=== PATIENT | male | born 1990 | race Caucasian/White ===

== ENCOUNTER 2019-12-26 02:07 | Inpatient (IN) | payer OTHER ==
[2019-12-26 02:27] VITALS: BMI 23.7
--- NOTE | 2019-12-26 03:00 | HP ---
COWS - Scale Resting Pulse: 1= [place] 81-100 Sweatin=Flushed/Facial Moisture Restless Observation: 1= Difficult to Sit Still Pupil Size: 0= Normal to Room Light Bone or Joint Aches: 4=Acute Joint/Muscle Pain Runny Nose/ Eye Tearin= Runny Nose/Eyes GI Upset > 30mins: 2= Nausea/Diarrhea (nausea, no diarrhea) Tremor Observation: 2= Slight Tremor Visible Yawning Observation: 1= 1-2x During Session Anxiety or Irritability: 2=Irritable/Anxious Goose Flesh Skin: 3=Piloerection COWS Score: 20 CIWA Score - Admission Criteria [facility]ASAS Guidelines: Admission for Medically Managed Detox: Requires at least one of the followin. CIWA greater than 12 2. Seizures within the past 24 hours 3. Delirium tremens within the past 24 hours 4. Hallucinations within the past 24 hours 5. Acute intervention needed for co occurring medical disorder 6. Acute intervention needed for co occurring psychiatric disorder 7. Severe withdrawal that cannot be handled at a lower level of care (continued vomiting, continued diarrhea, abnormal vital signs) requiring intravenous medication and/or fluids 8. Admitting History and Physical - Smoking History Smoking history: Current every day smoker Have you smoked in the past 12 months: Yes Aproximately how many cigarettes per day: 20 - Alcohol/Substance Use Hx Alcohol Use: No Admission ROS [facility] Chief Complaint: Heroin withdrawal symptoms Allergies/Adverse Reactions: Allergies Allergy/AdvReac Type Severity Reaction Status Date / Time No Known Allergies Allergy Verified 08/17/14 20:57 History of Present Illness: 29 years old male with six years of heroin dependence is seeking admission to detox. His last admission was for the period 08/17/2014-08/21/2014 and 01/12/2015-01/13/2015 and patient had left against medical advice respectively for both admissions. Patient promised to complete this admission and he signed the treatment contract. He reports use of 5 bags of heroin daily. He reports history of asthma and psych. history insomnia, depression and anxiety. He denies suicidal ideation at this time. He is unemployed, lives with his mother and denies any legal issues. He reports history of blackouts and overdoses. Patient reports history of excoriation with bruises and scabs on his left arm and frontal part of his body. Exam Limitations: Clinical Condition (withdrawals) - Ebola screening Have you traveled outside of the country in the last 21 days: No Have you had contact with anyone from an Ebola affected area: No Have you been sick,other than usual withdrawal symptoms: No Do you have a fever: No - Review of Systems Constitutional: Chills, Loss of Appetite, Malaise, Night Sweats, Changes in sleep EENT: reports: No Symptoms Reported Respiratory: reports: No Symptoms reported Cardiac: reports: No Symptoms Reported GI: reports: Nausea, Poor Appetite, Poor Fluid Intake, Abdominal cramping : reports: No Symptoms Reported Musculoskeletal: reports: Back Pain Integumentary: reports: Dryness, Flushing Neuro: reports: Headache, Tremors Endocrine: reports: No Symptoms Reported Hematology: reports: No Symptoms Reported Psychiatric: reports: Mood/Affect Appropiate, Orientated x3, Anxious Other Systems: Reviewed and Negative Patient History - Patient Medical History Hx Anemia: No Hx Asthma: Yes (Not on medication) Hx Chronic Obstructive Pulmonary Disease (COPD): No Hx Cancer: No Hx Cardiac Disorders: No Hx Congestive Heart Failure: No Hx Hypertension: No Hx Hypercholesterolemia: No Hx Pacemaker: No HX Cerebrovascular Accident: No Hx Seizures: No Hx Dementia: No Hx Diabetes: No Hx Gastrointestinal Disorders: No Hx Liver Disease: No Hx Genitourinary Disorders: No Hx Sexually Transmitted Disorders: No Hx Renal Disease (ESRD): No Hx Thyroid Disease: No Hx Human Immunodeficiency Virus (HIV): No (Negative 2014) Hx Hepatitis C: No Hx Depression: Yes (+ Anxiety = Insomnia - Not on medication) Hx Suicide Attempt: No (Denies suicidal ideation at this time.) Hx Bipolar Disorder: No Hx Schizophrenia: No - Patient Surgical History Past Surgical History: No Hx Neurologic Surgery: No Hx Cataract Extraction: No Hx Cardiac Surgery: No Hx Lung Surgery: No Hx Abdominal Surgery: No Hx Appendectomy: No Hx Cholecystectomy: No Hx Genitourinary Surgery: No Hx Orthopedic Surgery: No Anesthesia Reaction: No - PPD History Previous Implant?: Yes Documented Results: Negative w/o proof Implanted On Prior R Admission?: Yes Date: 08/19/14 Results: not read PPD to be Administered?: Yes - Reproductive History Patient is a Female of Child Bearing Age (11 -55 yrs old): No (Male) - Smoking Cessation Smoking history: Current every day smoker Have you smoked in the past 12 months: Yes Aproximately how many cigarettes per day: 10 Hx Chewing Tobacco Use: Yes Initiated information on smoking cessation: Yes 'Breaking Loose' booklet given: 12/26/19 - Substance & Tx. History Hx Alcohol Use: No Hx Substance Use: Yes Substance Use Type: Heroin Hx Substance Use Treatment: Yes ([facility]) - Substances abused Heroin Substance route: Injection Frequency: Daily Amount used: 5 bags Age of first use: 23 Date of last use: 12/25/19 Admission Physical Exam [facility] - Vital Signs Vital Signs: Vital Signs - 24 hr 12/26/19 02:26 Temperature 98.7 F Pulse Rate 99 H Respiratory 18 Rate Blood Pressure 126/79 - Physical General Appearance: Yes: Moderate Distress, Tremorous, Irritable, Anxious HEENTM: Yes: Within Normal Limits Respiratory: Yes: Lungs Clear, Normal Breath Sounds, No Respiratory Distress Neck: Yes: Within Normal Limits Breast: Yes: Breast Exam Deferred Cardiology: Yes: Tachycardia Abdominal: Yes: Normal Bowel Sounds, Soft Genitourinary: Yes: Within Normal Limits Back: Yes: Normal Inspection Musculoskeletal: Yes: Back pain Extremities: Yes: Tremors Neurological: Yes: Within Normal Limits, Alert, Normal Mood/Affect Integumentary: Yes: Warm, Track [place] (right arm) Lymphatic: Yes: Within Normal Limits - Diagnostic (1) Opioid dependence with withdrawal Current Visit: Yes Status: Acute (2) Anxiety and depression Current Visit: Yes Status: Chronic (3) Asthma Current Visit: Yes Status: Chronic Qualifiers: Asthma severity: mild Asthma persistence: intermittent (4) Insomnia Current Visit: Yes Status: Chronic Qualifiers: Insomnia type: drug-induced Qualified Code(s): F19.982 - Other psychoactive substance use, unspecified with psychoactive substance-induced sleep disorder (5) Nicotine dependence Current Visit: Yes Status: Chronic Qualifiers: Nicotine product type: cigarettes Substance use status: uncomplicated Qualified Code(s): F17.210 - Nicotine dependence, cigarettes, uncomplicated Cleared for Admission [facility] - Detox or Rehab [facility] Level of Care: Medically Managed Detox Regimen/Protocol: Methadone Claeared for Rehab Admission: No Breathalyzer - Breathalyzer Breathalyzer: 0 Urine Drug Screen - Test Device Lot number: [id number] Expiration date: 07/26/21 - Control Is test valid?: Yes - Results Drug screen NEGATIVE: No Urine drug screen results: AMP-Amphetamines, FEN-Fentanyl, MOP-Opiates Inpatient Rehab Admission - Rehab Decision to Admit Inpatient rehab admission?: No
[2019-12-26] MEDS ORDERED: IBUPROFEN 400 MG TABLET (FP) PO PRN (03:22)
[2019-12-26] MEDS ORDERED: ACETAMINOPHEN 325 MG TABLET (FP) PO PRN ×2 (03:22)
[2019-12-26] MEDS ORDERED: MAGNESIUM HYDROX 2400MG/30ML ORAL SUSPENSION 30 ML CUP PO PRN (03:22)
[2019-12-26] MEDS ORDERED: METHADONE HCL 10 MG TABLET (FOR DETOX USE ONLY) PO ONE (03:22)
[2019-12-26] MEDS ORDERED: BISMUTH SUBSALICYLATE 524 MG/30 ML UD PO PRN (03:22)
[2019-12-26] MEDS ORDERED: ONDANSETRON *ODT* 4 MG TABLET SL PRN (03:22)
[2019-12-26] MEDS ORDERED: MAGNESIUM CITRATE 300 ML BOTTLE PO PRN (03:22)
[2019-12-26] MEDS ORDERED: MAG HYDROX/AL HYDROX/SIMETH 30 ML UNIT-DOSE CUP PO PRN (03:22)
[2019-12-26] MEDS ORDERED: NICOTINE POLACRILEX 2 MG GUM BUC PRN (03:22)
[2019-12-26] MEDS ORDERED: MENTHOL/PHENOL 1 EACH UD MM PRN (03:22)
[2019-12-26] MEDS: hydrOXYzine PAMOATE 25 MG CAPSULE (FP) PO PRN ×3 (04:13→22:29)
[2019-12-26 10:05] LABS: HEMATOCRIT 35.9 % (35.4-49); HEMOGLOBIN 11.8 GM/dL (11.7-16.9); MCH 29.3 pg (25.7-33.7); MCHC 32.9 g/dl (32.0-35.9); MEAN CELL VOLUME 89.1 fl (80-96); MEAN PLT VOLUME 9.4 fl (7.5-11.1); PLATELET COUNT 229 K/MM3 (134-434); RBC 4.03 M/mm3 (4.00-5.60); RDW 12.5 % (11.9-15.9); WHITE BLOOD COUNT 14.4 K/mm3 (4.0-10.0)
[2019-12-26 10:19] LABS: ALBUMIN 3.3 g/dl (3.4-5.0); BILIRUBIN,TOTAL 0.9 mg/dL (0.2-1); BLOOD UREA NITROGEN 12.7 mg/dL (7-18); CALCIUM 8.5 mg/dL (8.5-10.1); CREATININE 0.8 mg/dL (0.55-1.3); POTASSIUM 3.7 mmol/L (3.5-5.1); TOT PROT 6.8 g/dl (6.4-8.2)
--- NOTE | 2019-12-26 10:19 | CONSULT ---
[facility] Psychiatric Consult - Data Date of interview: 12/26/19 Admission source: [facility] Identifying data: Patient is a 29 year old single male, without children, unemployed, domiciled, and is supported by [employer] benefits. This is one of multiple admissions for patient. Patient admitted to for opiate dependence. Substance Abuse History: Smoking Cessation. Smoking history: Current every day smoker. Have you smoked in the past 12 months: Yes. Aproximately how many cigarettes per day: 10. Hx Chewing Tobacco Use: Yes. Initiated information on smoking cessation: Yes. 'Breaking Loose' booklet given: 12/26/19. - Substance & Tx. History. Hx Alcohol Use: No. Hx Substance Use: Yes. Substance Use Type: Heroin. Hx Substance Use Treatment: Yes ([facility]). - Substances abused. Heroin. Substance route: Injection. Frequency: Daily. Amount used: 5 bags. Age of first use: 23. Date of last use: 12/25/19 Medical History: Asthma Psychiatric History: Patient denies history of psychiatric hospitalizations, outpatient psychiatric care, and suicide attempt. At present patient reports difficulty sleeping. Physical/Sexual Abuse/Trauma History: denies. Mental Status Exam - Mental Status Exam Alert and Oriented to: Time, Place, Person Cognitive Function: Good Patient Appearance: Well Groomed Mood: Hopeful Affect: Appropriate Patient Behavior: Appropriate, Cooperative Speech Pattern: Appropriate Voice Loudness: Normal Thought Process: Goal Oriented Hallucinations: Denies Suicidal Ideation: Denies Homicidal Ideation: Denies Insight/Judgement: Poor Sleep: Poorly Appetite: Fair Muscle strength/Tone: Normal Gait/Station: Normal Psychiatric Findings - Problem List ([place] 1, 2,3) (1) Opioid dependence with withdrawal Status: Acute (2) Nicotine dependence Status: Chronic Qualifiers: Nicotine product type: cigarettes Substance use status: uncomplicated Qualified Code(s): F17.210 - Nicotine dependence, cigarettes, uncomplicated (3) Substance-induced sleep disorder Status: Acute - Initial Treatment Plan Initial Treatment Plan: Psychoeducation provided. Detoxification in progress. Will order Belsomra 10mg HS PRN. Benefits and side effects discussed. Verbal consent given.
[2019-12-26] MEDS: PRENATAL VITAMINS W/ FOLIC ACID TABLET (FP) PO SCH (10:25)
[2019-12-26] MEDS: NICOTINE 14 MG/24 HOURS TOPICAL PATCH TD SCH (10:25)
--- NOTE | 2019-12-26 15:11 | PN ---
BHS COWS - Scale Resting Pulse: 0= [place] 80 or Below Sweatin= Chills/Flushing Restless Observation: 0= Sits Still Pupil Size: 1= Pupils >than Normal Bone or Joint Aches: 2= Severe Diffuse Aches Runny Nose/ Eye Tearin= Runny Nose/Eyes GI Upset > 30mins: 2= Nausea/Diarrhea Tremor Observation of Outstretched Hands: 2= Slight Tremor Visible Yawning Observation: 0= None Anxiety or Irritability: 2=Irritable/Anxious Goose Flesh Skin: 3=Piloerection COWS Score: 15 BHS Progress Note (SOAP) Subjective: 29 years old male was admitted on 12/26/19 for opiate withdrawal sx management treating with methadone detox regiment feels tired prefers to sleep longer in bed limited conversation with staff bmi 23.7 continue ensure supplement Objective: 12/26/19 15:12 Laboratory Tests 12/26/19 12/26/19 12/26/19 07:40 07:40 07:40 WBC 14.4 H RBC 4.03 Hgb 11.8 Hct 35.9 MCV 89.1 MCH 29.3 MCHC 32.9 RDW 12.5 Plt Count 229 D MPV 9.4 Sodium 138 Potassium 3.7 Chloride 101 Carbon Dioxide 29 Anion Gap 7 L BUN 12.7 Creatinine 0.8 Est GFR (CKD-EPI)AfAm 137.96 Est GFR (CKD-EPI)NonAf 119.03 Random Glucose 125 H Calcium 8.5 Total Bilirubin 0.9 AST 15 ALT 27 Alkaline Phosphatase 76 Total Protein 6.8 Albumin 3.3 L Syphilis Serology Non-reactive wbc glucose elevation covid pending Assessment: 12/26/19 15:13 opiate withdrawal Plan: methadone regiment
[2019-12-26] MEDS: cloNIDine HCL 0.1 MG TABLET PO PRN ×2 (17:10→22:29)
[2019-12-26] MEDS: METHOCARBAMOL 500 MG TABLET PO PRN (17:10)
--- NOTE | 2019-12-26 21:24 | EKG ---
Test Reason : Blood Pressure : / mmHG Vent. Rate : 088 BPM Atrial Rate : 088 BPM P-R Int : 144 ms QRS Dur : 112 ms QT Int : 374 ms P-R-T Axes : 040 093 056 degrees QTc Int : 452 ms NORMAL SINUS RHYTHM RIGHTWARD AXIS BORDERLINE ECG NO PREVIOUS ECGS AVAILABLE Confirmed by ROSALVA LINK MD ([id number]) on 12/26/2019 9:24:03 PM Referred By: Confirmed By:ROSALVA LINK MD
[2019-12-26] MEDS: MELATONIN 5 MG TABLETS PO SCH (22:29)
[2019-12-26] MEDS: THIAMINE HCL 100 MG TABLET (FP) PO SCH (22:29)
[2019-12-26] MEDS: SUVOREXANT 10 MG TABLET PO PRN (22:30)
[2019-12-27] MEDS: METHOCARBAMOL 500 MG TABLET PO PRN (00:27)
[2019-12-27] MEDS: hydrOXYzine PAMOATE 25 MG CAPSULE (FP) PO PRN ×2 (02:10→05:59)
[2019-12-27] MEDS: cloNIDine HCL 0.1 MG TABLET PO PRN (03:12)
[2019-12-27] MEDS ORDERED: MASKS NR ONE (08:46)
[2019-12-27] MEDS ORDERED: METHADONE HCL 10 MG TABLET (FOR DETOX USE ONLY) ONE (09:00)
[2019-12-27] MEDS ORDERED: METHADONE HCL 5 MG TABLET (FOR DETOX USE ONLY) ONE (09:02)
[2019-12-27] MEDS: PRENATAL VITAMINS W/ FOLIC ACID TABLET (FP) PO SCH (09:14)
[2019-12-27] MEDS: NICOTINE 14 MG/24 HOURS TOPICAL PATCH TD SCH (09:15)
[2019-12-27] MEDS ORDERED: METHADONE (DETOX) 20 MG, METHADONE (DETOX) 5 MG PO ONE (10:00)
--- NOTE | 2019-12-27 13:47 | PN ---
BHS COWS - Scale Resting Pulse: 2= [place] 101-120 Sweatin= Chills/Flushing Restless Observation: 0= Sits Still Pupil Size: 1= Pupils >than Normal Bone or Joint Aches: 1= Mild Discomfort Runny Nose/ Eye Tearin= Nasal Congestion GI Upset > 30mins: 1= Stomach Cramp Tremor Observation of Outstretched Hands: 2= Slight Tremor Visible Yawning Observation: 1= 1-2x During Session Anxiety or Irritability: 2=Irritable/Anxious Goose Flesh Skin: 0=Smooth Skin COWS Score: 12 BHS Progress Note (SOAP) Subjective: 29 years old male was admitted on 12/26/19 for opiate withdrawal sx management treating with methadone detox regiment reports anxious from opiate withdrawal increase vistaril to 50 mg x 2 days add valium prn syn with methadone speedy Objective: 12/27/19 14:07 Laboratory Tests 12/26/19 12/26/19 12/26/19 07:40 07:40 07:40 WBC 14.4 H RBC 4.03 Hgb 11.8 Hct 35.9 MCV 89.1 MCH 29.3 MCHC 32.9 RDW 12.5 Plt Count 229 D MPV 9.4 Sodium 138 Potassium 3.7 Chloride 101 Carbon Dioxide 29 Anion Gap 7 L BUN 12.7 Creatinine 0.8 Est GFR (CKD-EPI)AfAm 137.96 Est GFR (CKD-EPI)NonAf 119.03 Random Glucose 125 H Calcium 8.5 Total Bilirubin 0.9 AST 15 ALT 27 Alkaline Phosphatase 76 Total Protein 6.8 Albumin 3.3 L Syphilis Serology Non-reactive covid pending Iv heroin 12/27/19 14:08 Assessment: 12/27/19 14:09 opiate withdrawal Plan: methadone regiment
[2019-12-27] MEDS: hydrOXYzine PAMOATE 50 MG CAPSULE (FP) PO SCH ×3 (14:57→22:48)
[2019-12-27] MEDS: diazePAM 5 MG TABLET PO PRN (22:47)
[2019-12-27] MEDS: MELATONIN 5 MG TABLETS PO SCH (22:48)
[2019-12-27] MEDS: THIAMINE HCL 100 MG TABLET (FP) PO SCH (22:48)
[2019-12-28] MEDS: hydrOXYzine PAMOATE 50 MG CAPSULE (FP) PO SCH ×4 (03:42→14:06)
[2019-12-28] MEDS: diazePAM 5 MG TABLET PO PRN ×3 (05:29→22:25)
--- NOTE | 2019-12-28 09:08 | PN ---
BHS COWS - Scale Resting Pulse: 0= [place] 80 or Below Sweatin= Chills/Flushing Restless Observation: 0= Sits Still Pupil Size: 1= Pupils >than Normal Bone or Joint Aches: 1= Mild Discomfort Runny Nose/ Eye Tearin= None GI Upset > 30mins: 2= Nausea/Diarrhea Tremor Observation of Outstretched Hands: 2= Slight Tremor Visible Yawning Observation: 0= None Anxiety or Irritability: 2=Irritable/Anxious Goose Flesh Skin: 0=Smooth Skin COWS Score: 9
[2019-12-28] MEDS ORDERED: METHADONE HCL 10 MG TABLET (FOR DETOX USE ONLY) PO ONE (10:00)
[2019-12-28] MEDS: NICOTINE 14 MG/24 HOURS TOPICAL PATCH TD SCH (10:18)
[2019-12-28] MEDS: PRENATAL VITAMINS W/ FOLIC ACID TABLET (FP) PO SCH (10:18)
--- NOTE | 2019-12-28 13:18 | PN ---
BHS COWS - Scale Resting Pulse: 1= [place] 81-100 Sweatin= Chills/Flushing Restless Observation: 0= Sits Still Pupil Size: 1= Pupils >than Normal Bone or Joint Aches: 1= Mild Discomfort Runny Nose/ Eye Tearin= Nasal Congestion GI Upset > 30mins: 1= Stomach Cramp Tremor Observation of Outstretched Hands: 1= Tremor [place], Not Seen Yawning Observation: 1= 1-2x During Session Anxiety or Irritability: 1=Feels Anxious/Irritable Goose Flesh Skin: 0=Smooth Skin COWS Score: 9 BHS Progress Note (SOAP) Subjective: 29 years old male was admitted on 12/26/19 for opiate withdrawal sx management treating with methadone detox regiment ate breakfast and lunch in room resting in bed comfortable continue ensure supplement Objective: 12/28/19 13:19 Laboratory Tests 12/26/19 12/26/19 12/26/19 07:40 07:40 07:40 WBC 14.4 H RBC 4.03 Hgb 11.8 Hct 35.9 MCV 89.1 MCH 29.3 MCHC 32.9 RDW 12.5 Plt Count 229 D MPV 9.4 Sodium 138 Potassium 3.7 Chloride 101 Carbon Dioxide 29 Anion Gap 7 L BUN 12.7 Creatinine 0.8 Est GFR (CKD-EPI)AfAm 137.96 Est GFR (CKD-EPI)NonAf 119.03 Random Glucose 125 H Calcium 8.5 Total Bilirubin 0.9 AST 15 ALT 27 Alkaline Phosphatase 76 Total Protein 6.8 Albumin 3.3 L Syphilis Serology Non-reactive Vital Signs - 24 hr 12/27/19 12/27/19 12/28/19 16:53 20:37 06:27 Temperature 98.0 F 97.5 F L 98.0 F Pulse Rate 61 66 66 Respiratory 18 18 18 Rate Blood Pressure 113/72 93/54 L 114/71 O2 Sat by Pulse 98 100 Oximetry (%) 12/28/19 12/28/19 08:53 12:49 Temperature 98.0 F 97.5 F L Pulse Rate 85 66 Respiratory 18 18 Rate Blood Pressure 121/70 99/58 L O2 Sat by Pulse 97 Oximetry (%) wbc and glucose elevation 12/28/19 13:22 fasting glucose pending Assessment: 12/28/19 13:24 opiate withdrawal Plan: methadone regiment
[2019-12-28] MEDS: SUVOREXANT 10 MG TABLET PO PRN (22:25)
[2019-12-28] MEDS: THIAMINE HCL 100 MG TABLET (FP) PO SCH (22:25)
[2019-12-28] MEDS: MELATONIN 5 MG TABLETS PO SCH (22:26)
[2019-12-29] MEDS: diazePAM 5 MG TABLET PO PRN (07:14)
[2019-12-29] MEDS ORDERED: METHADONE HCL 5 MG TABLET (FOR DETOX USE ONLY) ONE (09:12)
[2019-12-29] MEDS ORDERED: METHADONE HCL 10 MG TABLET (FOR DETOX USE ONLY) ONE (09:12)
[2019-12-29 09:22] VITALS: BP 116/81; PULSE 119; TEMP 97.3
[2019-12-29] MEDS: PRENATAL VITAMINS W/ FOLIC ACID TABLET (FP) PO SCH (09:32)
[2019-12-29] MEDS: NICOTINE 14 MG/24 HOURS TOPICAL PATCH TD SCH (09:33)
--- NOTE | 2019-12-29 09:47 | PN ---
BHS COWS - Scale Resting Pulse: 2= [place] 101-120 Sweatin= No chills or Flushing Restless Observation: 0= Sits Still Pupil Size: 0= Normal to Room Light Bone or Joint Aches: 2= Severe Diffuse Aches Runny Nose/ Eye Tearin= Runny Nose/Eyes GI Upset > 30mins: 2= Nausea/Diarrhea Tremor Observation of Outstretched Hands: 2= Slight Tremor Visible Yawning Observation: 1= 1-2x During Session Anxiety or Irritability: 2=Irritable/Anxious Goose Flesh Skin: 0=Smooth Skin COWS Score: 13 S Progress Note (SOAP) Subjective: alert,irritable,anxious,interrupted sleep,pain in the body and back,nausea Objective: 12/29/19 13:45 Vital Signs Temperature 97.3 F L 12/29/19 08:37 Pulse Rate 119 H 12/29/19 08:37 Respiratory Rate 20 12/29/19 08:37 Blood Pressure 116/81 12/29/19 08:37 O2 Sat by Pulse Oximetry (%) 99 12/29/19 06:23 Laboratory Last Values WBC 14.4 K/mm3 (4.0-10.0) H 12/26/19 07:40 RBC 4.03 M/mm3 (4.00-5.60) 12/26/19 07:40 Hgb 11.8 GM/dL (11.7-16.9) 12/26/19 07:40 Hct 35.9 % (35.4-49) 12/26/19 07:40 MCV 89.1 fl (80-96) 12/26/19 07:40 MCH 29.3 pg (25.7-33.7) 12/26/19 07:40 MCHC 32.9 g/dl (32.0-35.9) 12/26/19 07:40 RDW 12.5 % (11.9-15.9) 12/26/19 07:40 Plt Count 229 K/MM3 (134-434) D 12/26/19 07:40 MPV 9.4 fl (7.5-11.1) 12/26/19 07:40 Sodium 138 mmol/L (136-145) 12/26/19 07:40 Potassium 3.7 mmol/L (3.5-5.1) 12/26/19 07:40 Chloride 101 mmol/L (98-107) 12/26/19 07:40 Carbon Dioxide 29 mmol/L (21-32) 12/26/19 07:40 Anion Gap 7 MMOL/L (8-16) L 12/26/19 07:40 BUN 12.7 mg/dL (7-18) 12/26/19 07:40 Creatinine 0.8 mg/dL (0.55-1.3) 12/26/19 07:40 Est GFR (CKD-EPI)AfAm 137.96 12/26/19 07:40 Est GFR (CKD-EPI)NonAf 119.03 12/26/19 07:40 Random Glucose 125 mg/dL (74-106) H 12/26/19 07:40 Fasting Glucose 95 mg/dL (74-106) 12/29/19 08:45 Calcium 8.5 mg/dL (8.5-10.1) 12/26/19 07:40 Total Bilirubin 0.9 mg/dL (0.2-1) 12/26/19 07:40 AST 15 U/L (15-37) 12/26/19 07:40 ALT 27 U/L (13-61) 12/26/19 07:40 Alkaline Phosphatase 76 U/L (45-117) 12/26/19 07:40 Total Protein 6.8 g/dl (6.4-8.2) 12/26/19 07:40 Albumin 3.3 g/dl (3.4-5.0) L 12/26/19 07:40 Syphilis Serology Non-reactive (NONREACTIVE) 12/26/19 07:40 COVID-19 ([facility]) Not detected (Not Detected) 12/26/19 08:40 Assessment: 12/29/19 13:46 withdrawal symptom Plan: continue detox methadone regimen,hydration,fluid,repeat cbc in am
--- NOTE | 2019-12-29 09:48 | DS ---
[facility] Detox Discharge Summary Admission Date: 12/26/19 Discharge Date: 12/29/19 - History Present History: Cocaine Dependence, Opioid Dependence, Sedative Dependence Additional Comments: alert,oriented x 3 lung clear on auscultation bilaterally abdomen soft,no pain,no tenderness no swelling of the legs patient did not want to complete treatment,the high risk of relapsing explained and understood, signed release against medical advise,the risk of leaving including seizure,permanent disability,including addressed with the patient,understood total time spending on discharged 35 minutes stated his mother is picking him up to go to [facility] program for evaluation advise to call 911 if not feeling well narcan nasal spray sent to patient's pharmacy Pertinent Past History: asthma anxiety,depression insomnia - Physical Exam Results Vital Signs: Vital Signs Temperature 97.3 F L 12/29/19 08:37 Pulse Rate 119 H 12/29/19 08:37 Respiratory Rate 20 12/29/19 08:37 Blood Pressure 116/81 12/29/19 08:37 O2 Sat by Pulse Oximetry (%) 99 12/29/19 06:23 Pertinent Admission Physical Exam Findings: withdrawal signs and symptom Laboratory Last Values WBC 14.4 K/mm3 (4.0-10.0) H 12/26/19 07:40 RBC 4.03 M/mm3 (4.00-5.60) 12/26/19 07:40 Hgb 11.8 GM/dL (11.7-16.9) 12/26/19 07:40 Hct 35.9 % (35.4-49) 12/26/19 07:40 MCV 89.1 fl (80-96) 12/26/19 07:40 MCH 29.3 pg (25.7-33.7) 12/26/19 07:40 MCHC 32.9 g/dl (32.0-35.9) 12/26/19 07:40 RDW 12.5 % (11.9-15.9) 12/26/19 07:40 Plt Count 229 K/MM3 (134-434) D 12/26/19 07:40 MPV 9.4 fl (7.5-11.1) 12/26/19 07:40 Sodium 138 mmol/L (136-145) 12/26/19 07:40 Potassium 3.7 mmol/L (3.5-5.1) 12/26/19 07:40 Chloride 101 mmol/L (98-107) 12/26/19 07:40 Carbon Dioxide 29 mmol/L (21-32) 12/26/19 07:40 Anion Gap 7 MMOL/L (8-16) L 12/26/19 07:40 BUN 12.7 mg/dL (7-18) 12/26/19 07:40 Creatinine 0.8 mg/dL (0.55-1.3) 12/26/19 07:40 Est GFR (CKD-EPI)AfAm 137.96 12/26/19 07:40 Est GFR (CKD-EPI)NonAf 119.03 12/26/19 07:40 Random Glucose 125 mg/dL (74-106) H 12/26/19 07:40 Fasting Glucose 95 mg/dL (74-106) 12/29/19 08:45 Calcium 8.5 mg/dL (8.5-10.1) 12/26/19 07:40 Total Bilirubin 0.9 mg/dL (0.2-1) 12/26/19 07:40 AST 15 U/L (15-37) 12/26/19 07:40 ALT 27 U/L (13-61) 12/26/19 07:40 Alkaline Phosphatase 76 U/L (45-117) 12/26/19 07:40 Total Protein 6.8 g/dl (6.4-8.2) 12/26/19 07:40 Albumin 3.3 g/dl (3.4-5.0) L 12/26/19 07:40 Syphilis Serology Non-reactive (NONREACTIVE) 12/26/19 07:40 COVID-19 ([facility]) Not detected (Not Detected) 12/26/19 08:40 Vital Signs Temperature 97.3 F L 12/29/19 08:37 Pulse Rate 119 H 12/29/19 08:37 Respiratory Rate 20 12/29/19 08:37 Blood Pressure 116/81 12/29/19 08:37 O2 Sat by Pulse Oximetry (%) 99 12/29/19 06:23 - Medication Discharge Medications: Ambulatory Orders Naloxone HCl [Narcan] 4 mg NS ASDIR #1 spray 12/29/19 - Diagnosis (1) Opioid dependence with withdrawal Status: Acute (2) Cocaine dependence Status: Acute (3) Benzodiazepine dependence Status: Acute (4) Weight loss Status: Acute (5) Anxiety and depression Status: Chronic (6) Insomnia Status: Chronic Qualifiers: Insomnia type: drug-induced Qualified Code(s): F19.982 - Other psychoactive substance use, unspecified with psychoactive substance-induced sleep disorder (7) Nicotine dependence Status: Chronic Qualifiers: Nicotine product type: cigarettes Substance use status: uncomplicated Qualified Code(s): F17.210 - Nicotine dependence, cigarettes, uncomplicated (8) Heroin dependence Status: Acute - AMA Did Patient Leave Against Medical Advice: Yes
[2019-12-29] MEDS ORDERED: METHADONE (DETOX) 10 MG, METHADONE (DETOX) 5 MG PO ONE (10:00)
[2019-12-29] MEDS ORDERED: diazePAM 5 MG TABLET PO PRN (14:01)
[2019-12-30] MEDS ORDERED: METHADONE HCL 10 MG TABLET (FOR DETOX USE ONLY) PO ONE (10:00)
[2019-12-31] MEDS ORDERED: METHADONE HCL 5 MG TABLET (FOR DETOX USE ONLY) PO ONE (06:00)
== END 2019-12-29 09:46 | disposition left against medical advice (07) | DRG 770 ==
LOC: YASAS 02:07 → Y3N 03:29
PROVIDERS: ADMIT Allergy & Immunology; ATTEND Allergy & Immunology
PROC: HZ2ZZZZ Detoxification Services for Substance Abuse Treatment (ICD-10-PCS; principal; 2019-12-26)
DX: F11.23 Opioid dependence with withdrawal (principal); F14.20 Cocaine dependence, uncomplicated; F13.20 Sedative, hypnotic or anxiolytic dependence, uncomplicated; F17.210 Nicotine dependence, cigarettes, uncomplicated; F19.282 Other psychoactive substance dependence with psychoactive substance-induced sleep disorder; F41.9 Anxiety disorder, unspecified; F32.9 Major depressive disorder, single episode, unspecified; G47.00 Insomnia, unspecified; J45.20 Mild intermittent asthma, uncomplicated; R63.4 Abnormal weight loss; Z68.23 Body mass index [BMI] 23.0-23.9, adult; Z56.0 Unemployment, unspecified
CPT/HCPCS: 36415; 80053; 82947; 85027; 86780; 93005; 93010; J0735; Q0162; U0003